=== PATIENT | female | born 1950 | race Caucasian/White ===

== ENCOUNTER → 2017-08-19 15:56 | Outpatient (REF) | payer MEDICARE, SELFPAY | LOC: LAB 15:56 | PROVIDERS: Visit Provider Orthopaedic Surgery | DX: L03.116 Cellulitis of left lower limb | CPT/HCPCS: 87070; 87077; 87186; 87205 ==

== ENCOUNTER → 2017-08-26 14:11 | Outpatient (CLI) | payer MEDICARE, SELFPAY ==
--- NOTE | 2017-08-26 | AS_ITS ---
Arterial Exam Indications: 707.13 Ulcer of ankle. Non healing ulcer of the left medial ankle x 7 months. IMPRESSIONS Study suggests greater than 60% arterial insufficiency at rest involving the right common femoral artery, the right femoral artery, the left common femoral artery, the left deep femoral artery, and the left femoral artery History: Risk factors: Current tobacco use. Hypertension. Bilateral lower extremity arterial duplex. Duplex scan and ankle-brachial indices. Location: Vascular laboratory. Patient status: Outpatient. Tables: Arterial flow: + +--------+--------+ + Location V sys V ed Flow analysis + +--------+--------+ + Right common femoral 186cm/s -------- Triphasic + +--------+--------+ + Right deep femoral - proximal 157cm/s -------- Triphasic + +--------+--------+ + Right femoral - proximal 165cm/s -------- Biphasic + +--------+--------+ + Right femoral - mid 215cm/s 18.9cm/s Triphasic + +--------+--------+ + Right femoral - distal 113cm/s -------- Biphasic + +--------+--------+ + Right popliteal - proximal 99.9cm/s -------- Biphasic + +--------+--------+ + Right popliteal - distal 113cm/s -------- Biphasic + +--------+--------+ + Right posterior tibial - mid 93.2cm/s -------- Biphasic + +--------+--------+ + Right posterior tibial - distal 84.2cm/s -------- Biphasic + +--------+--------+ + Right peroneal - proximal 135cm/s -------- Biphasic + +--------+--------+ + Right peroneal - mid 85.3cm/s -------- Monophasic + +--------+--------+ + Right peroneal - distal 90.9cm/s -------- Monophasic + +--------+--------+ + Left common femoral 217cm/s 20.4cm/s Triphasic + +--------+--------+ + Left deep femoral - proximal 215cm/s -------- Monophasic + +--------+--------+ + Left femoral - proximal 167cm/s 23.6cm/s Monophasic + +--------+--------+ + Left femoral - mid 239cm/s 23.6cm/s Triphasic + +--------+--------+ + Left femoral - distal 168cm/s 18.9cm/s Triphasic + +--------+--------+ + Left popliteal - proximal 141cm/s 22cm/s Monophasic + +--------+--------+ + Left popliteal - distal 135cm/s 26.7cm/s Monophasic + +--------+--------+ + Left posterior tibial - proximal 141cm/s 28.3cm/s Monophasic + +--------+--------+ + Left posterior tibial - mid 130cm/s 18.9cm/s Monophasic + +--------+--------+
== END ==
PROVIDERS: PCP Family Medicine; Visit Provider Physician Assistant
DX: I73.9 Peripheral vascular disease, unspecified (principal); I10 Essential (primary) hypertension
CPT/HCPCS: 93925

== ENCOUNTER → 2017-09-21 16:08 | Outpatient (REF) | payer MEDICARE, SELFPAY ==
[2017-09-21 16:30] LABS: Microscopic, Urine URINE MICROSCOPIC (MICROSCOPIC)
[2017-09-21 16:36] LABS: Basophils % 0.5 % (0.1-2.0); Eosinophils # 0.1 K/mm3 (0.0-0.4); Eosinophils % 1.4 % (0.1-12.0); Hematocrit 40.6 % (37.0-47.0); Hemoglobin 12.3 g/dL (12.2-16.2); Lymphocytes # 3.5 K/mm3 (0.7-4.5); Lymphocytes % 40.7 K/mm3 (10-50); Mean Corpuscular HGB Conc 30.4 g/dL (31.8-35.4); Mean Corpuscular Hemoglobin 27.1 pg (27.0-31.2); Mean Corpuscular Volume 89.1 fl (81-99); Mean Platelet Volume 7.1 fl (7.4-10.4); Monocytes # 0.5 K/mm3 (0.1-1.0); Monocytes % 5.4 % (1.7-9.3); Neutrophils # 4.5 K/mm3 (1.8-7.8); Platelet Count 422 K/mm3 (142-424); Red Blood Count 4.56 M/mm3 (4.20-5.40); Red Cell Distribution Width 17.8 % (11.5-17.5); White Blood Count 8.7 K/mm3 (4.8-10.8)
[2017-09-21 16:40] LABS: Appearance,Urine CLEAR (Clear); Bilirubin,Urine Negative (Negative); Blood, Urine Negative (Negative); Color,Urine YELLOW (Yellow); Glucose,Urine (UA) Negative (Negative); Ketones,Urine Negative (Negative); Leukocyte Esterase,Urine Negative (Negative); Nitrate,Urine Negative (Negative); PH,Urine 6.5 (5.0-8.5); Protein,Urine Negative (Negative); Specific Gravity, Urine <= 1.005 (1.005-1.030); Urobilinogen,Urine 0.2 EU/dl (0.2)
[2017-09-21 16:48] LABS: Alanine Aminotransferase 67 U/L (12-78); Albumin Level 4.3 gm/dL (3.4-5.0); Alkaline Phosphatase 100 U/L (46-116); Anion Gap 15.4 mEq/L (5-15); Aspartate Amino Transferase 44 U/L (15-37); Bilirubin,Total 0.2 mg/dL (0.2-1.0); Blood Urea Nitrogen 12 mg/dL (7-18); Calcium 9.7 mg/dL (8.5-10.1); Carbon Dioxide 29 mmol/L (21.0-32.0); Chloride 99 mmol/L (98-107); Chol/HDL Ratio 4.2 (1-3.5); Cholesterol 157 mg/dL (140-200); Creatinine,Serum 0.64 mg/dL (0.55-1.02); Estimated Glomerular Filt Rate 93 ml/min (>60); GFR (African American) 112 ML/MIN (>60); Globulin 4.4 gm/dl (1.3-3.2); Glucose 84 mg/dL (74-106); HDL Cholesterol 37 mg/dL (29-89); LDL Cholesterol 77 mg/dL (0-130); Potassium 4.4 mmoL/L (3.5-5.1); Sodium 139 mmol/L (136-145); Total Protein,Serum 8.7 gm/dL (6.4-8.2); Triglycerides 214 mg/dL (30-200); VLDL Cholesterol 43 mg/dL (0-40)
[2017-09-21 17:04] LABS: Bacteria,Urine Trace /lpf; WBC,Urine Occasional #/hpf (0-3)
== END ==
LOC: LAB 16:08
PROVIDERS: Physician Assistant; Visit Provider Orthopaedic Surgery
DX: I10 Essential (primary) hypertension (principal); I73.9 Peripheral vascular disease, unspecified; L97.909 Non-pressure chronic ulcer of unspecified part of unspecified lower leg with unspecified severity; Z79.899 Other long term (current) drug therapy
CPT/HCPCS: 36415; 80053; 80061; 81001; 85025; 87070; 87077; 87186; 87205; 93005

== ENCOUNTER → 2017-09-23 15:00 | Outpatient (CLI) | payer MEDICARE, SELFPAY | PROVIDERS: Visit Provider Physician Assistant | DX: I11.0 Hypertensive heart disease with heart failure (principal); I73.9 Peripheral vascular disease, unspecified ==

== ENCOUNTER → 2017-10-27 13:32 | Outpatient (CLI) | payer MEDICARE, SELFPAY ==
--- NOTE | 2017-10-27 13:47 | XR_ITS ---
XR ankle wt bearing LT min 3V HISTORY: ITS.REASON: pain ORDERING PHYSICIAN: Maria Esther Dozier DPM PATIENT AGE: 67 years Comparison: None FINDINGS: The ankle mortise is widened. There is inversion of the ankle with lateral aspect of the talus tilted inferiorly. Is mild lateral subluxation of the talus osteoarthritic changes are present at the talar tibial joint. No acute fracture or dislocation is evident. There is pes planus. There may be an old distal fibular fracture. IMPRESSION: Ankle instability with inversion of the talus and widening of the ankle mortise with pes planus
--- NOTE | 2017-10-27 13:47 | XR_ITS ---
XR ankle wt bearing RT min 3V HISTORY: ITS.REASON: pain ORDERING PHYSICIAN: Maria Esther Dozier DPM PATIENT AGE: 67 years Comparison: None FINDINGS: There is an old fracture of the distal fibula 7 cm proximal to the tip of the fibula. An old distal tibial fracture is also noted 7.6 cm proximal to the distal articular surface with posterior bony hypertrophy at the old fracture site. The ankle mortise does not appear widened. There is pes planus IMPRESSION: Old distal tib-fib fracture with pes planus
== END ==
PROVIDERS: Visit Provider Podiatrist
DX: M25.572 Pain in left ankle and joints of left foot (principal); M25.571 Pain in right ankle and joints of right foot
CPT/HCPCS: 73610

== ENCOUNTER → 2017-11-11 13:40 | Outpatient (CLI) | payer MEDICARE, SELFPAY ==
[2017-11-11 14:11] LABS: Blood Urea Nitrogen 9 mg/dL (7-18); Creatinine,Serum 0.77 mg/dL (0.55-1.02); Estimated Glomerular Filt Rate 75 ml/min (>60); GFR (African American) 91 ML/MIN (>60)
== END ==
PROVIDERS: Visit Provider Podiatrist
DX: M25.572 Pain in left ankle and joints of left foot (principal)
CPT/HCPCS: 36415; 82565; 84520

== ENCOUNTER → 2017-11-11 13:56 | Outpatient (CLI) | payer MEDICARE, SELFPAY ==
--- NOTE | 2017-11-11 14:01 | MR_ITS ---
MR ankle LT wo/w con Ordering Physician: Maria Esther Dozier DPM Patient Age: 67 years: Female HISTORY: ITS.REASON: non healing ulcer Left ankle pain 5 years. Cellulitis 9 months. Bilateral leg pain and blisters came up on medial aspect of left ankle. Blister now ulceration medial left ankle. Persistent wound. TECHNIQUE: Multiplanar multisequence imaging performed on 1.5 T MR pre and postcontrast. Linear 12 mL used for the postcontrast imaging COMPARISON :Plain films of left ankle from 10/27/2017 FINDINGS Ankle instability with eversion tilted of the talus with: narrowing lateral tibial talar joint ; & widening of the medial ankle mortise. With pes planus again noted . Previous plain films as well as today's MR shows show a significant lateral eversion tiltof the talus. This yields pronounced narrowing and arthritic changes most pronounced at the the lateral tibial talar joint...- Associated small subchondral cystic changes and osteochondral irregularities lateral tibial talar joint. . This anatomy also reveals prominence of soft tissue overlying the medial malleolus where the skin thinning & wound/ ulcer is encountered. There is some additional soft tissue edema throughout the medial aspect of lower leg & ankle which may reflect a regional cellulitis.. This and associated subcutaneous edema actually most evident just superior to the ulcer defect overlying medial malleolus. . There seems to be extremely subtle micrometal artifact in the soft tissues overlying the lateral malleolus-question from possibly from previous debridement, or treatment technique.?. (For example coronal image 18 adjacent to the superior base of the medial malleolus.). No radiopaque foreign body seen on plain film The axial T1 postcontrast image there seems to be some mild enhancement about the margin of the ankle joint which may reflect a synovitis related to the arthritic changes here.. Also mild enhancement in the soft tissues overlying the medial malleolus. Malleolus medial malleolus shows no enhancement or discrete abnormal signal. No evidence of osteomyelitis or destructive change at this point The posterior tibialis tendon appears intact. The subtalar joint with upper slight increased normal fluid laterally.. Pes planus again noted. The Achilles tendon and plantar aponeurosis appear satisfactory -----IMPRESSION-------- . Significant eversion tilted of the talus yielding marked narrowing & 8 prominent arthritic changes at the ankle, most pronounced towards the narrowed lateral tibial talar joint.. Suggestion very subtle enhancing mild synovitis at this arthritic ankle joint. .. Appears to be a an soft tissue ulcer defect evident within the the slight stretched appearing soft tissues overlying the medial malleolus,--resulting from the eversion tilt of talus.. Soft tissue edema and mild enhancement Findings compatible with diffuse cellulitis at and above and below the medial malleolus-throughout the subcutaneous tissues about medial aspect of the ankle. (I question there subtle micrometal artifact in this region possibly from previous debridement, intervention or treatment technique. Clinical correlation required) The medial malleolus itself is elongated, & slightly pointed probably from old injury,... But with No evident destruction or osteomyelitis.
== END ==
PROVIDERS: Family Provider Family Medicine; PCP Family Medicine; Visit Provider Podiatrist
DX: M25.572 Pain in left ankle and joints of left foot (principal); L97.322 Non-pressure chronic ulcer of left ankle with fat layer exposed
CPT/HCPCS: 36415; 73223; 82565; 84520; A9576

== ENCOUNTER → 2017-11-16 11:36 | Outpatient (CLI) | payer MEDICARE, SELFPAY ==
--- NOTE | 2017-11-16 11:42 | NM_ITS ---
History and Indications: Hypertension, shortness of breath, palpitations and tobacco use Procedure: Patient received a 0.4 mg of Lexiscan, resting heart rate was 65 bpm, resting blood pressure 213/94, with Lexiscan maximum heart rate achieved was 75 bpm which is less than 85% of the maximum predicted heart rate and a blood pressure was 210/100. With Lexiscan patient complained of shortness of breath. Electrocardiogram: Resting electrocardiogram showed sinus rhythm, with Lexiscan less than 1.[address] segment depression noted from the baseline EKG. The EKG portion of the Lexiscan Myoview is nondiagnostic. Cardiac stress and resting SPECT images: Cardiac stress and rest SPECT images were obtained using technetium 99 Myoview 32.2 mCi at stress and the 10.4 mCi at rest. Gated SPECT further analysis of segmental wall motion and calculation of the ejection fraction also. Cardiac stress and rest images show uniform myocardial activity without any segmental perfusion abnormality, computer derived fraction is over 65% with no obvious regional wall motion abnormality, right ventricle is mildly enlarged with normal contractility. Conclusion: 1. The EKG portion of the Lexiscan Myoview is nondiagnostic. 2. No obvious scintigraphic evidence of reversible ischemia seen, computer derived ejection fraction is over 65% with no obvious regional wall motion abnormality, right ventricle is mildly enlarged with normal contractility. 3. Normal Lexiscan Myoview study.
--- NOTE | 2017-11-16 12:12 | CA_ITS ---
PROCEDURE: 2-D M-mode and color Doppler study INDICATIONS FOR THE TEST: Chest pain COPDX Heart Murmur Tobacco SmokingXX PalpitationsX Fatigue Syncope Edema HypertensionXDiabetes Mellitus Rheumatic Fever SOB HAAS Obesity HyperlipidemiaX Family History HD TDS COPD Additional History PATIENT INFORMATION HEIGHT:60 WEIGHT:132 GENDER: Female B/P:132/86 2-D/M-MODE INTERPRETATION: 2-D MEASUREMENTS OBSERVED VALUES IN CMS Right Ventricular Dimension (RVDd) 1.5 Interventricular Septum (Thickness)(IVsd) .8 Left Ventricular Internal Dimensions(LVIDd) 4.4 Left Ventricular Posterior Wall (Thickness)(LVPWd) .9 Aortic Root 2.9 Aortic Cusp Separation 1.2 Left Atrial Dimensions (LAD) 2.4 2D 1. Left atrium is qualitatively moderately enlarged, there is no concentric left ventricular hypertrophy, visually estimated ejection fraction 55% with no obvious regional wall motion abnormality. 2. The right atrium and right ventricle are normal size and contractility. 3. The aortic valve is thickened and calcified leaflet continue to display good mobility. 4. The mitral valve leaflets are thickened and calcified with restriction the leaflet mobility. 5. The tricuspid valve is grossly normal. 6. No significant pericardial effusion noted 7. The pulmonic valve is poorly visualized. DOPPLER INTERROGATION: Doppler interrogation of the aortic, mitral and tricuspid valve reveals presence of increased velocities across the mitral valve, the degree of mitral stenosis cannot be calculated from this study, repeat study is recommended to evaluate the degree of mitral stenosis, there is moderate mitral regurgitation present. There is mild tricuspid regurgitation, tricuspid and jet velocity insufficient for calculation of the right ventricular systolic pressure, diastolic parameters are inconclusive. CONCLUSION: 1. Moderately enlarged left atrium, normal left ventricular size, visually estimated ejection fraction 55% with no obvious regional wall motion abnormality, diastolic parameters are inconclusive. 2. Thickened and calcified aortic valve without aortic stenosis aortic insufficiency. 3. Abnormal mitral valve as described above, degree of mitral stenosis cannot be calculated from this study, a repeat study recommended. 4. Moderate mitral and mild tricuspid regurgitation 5. No significant pericardial effusion noted.
--- NOTE | 2017-11-16 12:36 | HMH.ITSHM ---
CLONIDINE METOPROLOL GABAPENTIN HYDROCODEN FAROSMIPE MONTELUKAST METOCLOPRAMIDE CILOSTRAZOL AMLODIPINE DALOXETINE DEXILANT ZOLPIOEM ALPRAZOLAM DILOCARPINE MITROFUANTION
--- NOTE | 2017-11-16 13:22 | HMH.ITSHM ---
clonidine metoprolol gabapentin hydrocoden farosmipe montelukast metoclopramide cilostrazol amlodipine daloxetine dexilant zolpioem alprazolam pilocarpine mitrofuranton
== END ==
PROVIDERS: Family Provider Family Medicine; PCP Family Medicine; Visit Provider Physician Assistant
DX: R06.00 Dyspnea, unspecified (principal); I10 Essential (primary) hypertension; R00.2 Palpitations; I73.9 Peripheral vascular disease, unspecified
CPT/HCPCS: 78452; 93017; 93306; A9502; J2785

== ENCOUNTER → 2017-12-07 14:51 | Outpatient (CLI) | payer MEDICARE, SELFPAY ==
--- NOTE | 2017-12-07 15:15 | CA_ITS ---
PROCEDURE: Doppler interrogation of the mitral valve. INDICATIONS FOR THE TEST: Chest pain COPD Heart Murmur Tobacco Smoking Palpitations Fatigue Syncope Edema Hypertension Diabetes Mellitus Rheumatic Fever SOB HAAS Obesity Hyperlipidemia Family History HD Additional History REPEAT FOR MV/MS INTERROGATION PATIENT INFORMATION HEIGHT: 58 WEIGHT:132 GENDER: Female B/P:132/86 DOPPLER INTERROGATION: The Doppler interrogation of the mitral valve reveals increased velocity across the mitral valve 2.4 m/s, resulting in a mean gradient across valve of 9 mmHg, this represents at least moderate mitral stenosis, there is mild mitral regurgitation present.
== END ==
PROVIDERS: Family Provider Family Medicine; PCP Family Medicine; Visit Provider Physician Assistant
DX: R06.09 Other forms of dyspnea (principal)

== ENCOUNTER 2017-12-07 15:30 | Outpatient (RCR) | payer MEDICARE, SELFPAY | END 2017-12-07 15:31 | disposition home or self-care (01) | LOC: PT 15:30 | PROVIDERS: Visit Provider Orthopaedic Surgery | DX: L03.116 Cellulitis of left lower limb (principal) | CPT/HCPCS: 29580; 97162; 97597 ==